=== PATIENT | male | born 1940 | race Caucasian/White ===

== ENCOUNTER 2017-10-09 02:44 | Emergency (ER) | payer MEDICARE, OTHER ==
[2017-10-09] MEDS ORDERED: Acetaminophen TAB* 325 MG PO ONE (03:14)
[2017-10-09 04:10] LABS: Hematocrit 43 % (42-52); Hemoglobin 14.2 g/dl (14.0-18.0); Mean Corpuscular HGB Conc 33 g/dl (31-36); Mean Corpuscular Hemoglobin 29 pg (27-31); Mean Corpuscular Volume 88 fL (80-94); Mean Platelet Volume 9 um3 (7.4-10.4); Red Blood Count 4.84 10^6/ul (4.0-5.4); Red Cell Distribution Width 14 % (10.5-15); White Blood Count 9.8 10^3/ul (3.5-10.8)
[2017-10-09 04:25] LABS: Albumin 3.7 g/dL (3.2-5.2); BUN/Creatinine Ratio 20.5 (8-20); C Reactive Protein 88.57 mg/L (< 5.00); Calcium 8.9 mg/dL (8.6-10.3); EGFR African American 123.8 (>60); EGFR Non-African American 96.3 (>60); Potassium 3.9 mmol/L (3.5-5.0); Total Bilirubin 0.7 mg/dL (0.2-1.0); Total Protein 6.7 g/dL (6.4-8.9)
[2017-10-09] MEDS ORDERED: Levofloxacin 750 MG IVPREMIX(* 750 MG/150 ML BAG IVPB ONE (04:40)
[2017-10-09 04:44] LABS: Troponin I 0.02 ng/mL (<0.04)
[2017-10-09] MEDS ORDERED: Levofloxacin TAB* 750 MG PO ONE (04:49)
--- NOTE | 2017-10-09 05:03 | ED ---
Venessa Lopez Rebecca, scribed for James Jain MD on 10/09/17 at 0313 . HPI Chest Pain - HPI Summary HPI Summary: Pt is a 77 y/o M BIBA who presents to ED c/o chest pain. Sx woke him up from sleep, described as left anterior chest pain with radiation to the back. Initially, pain was severe, described as "serious pain" which is now resolved. [employer], the pt took 2 Tums and 4 x 81 mg ASA and lizzie coleen which resolved sx. additionally notes subjective fever and cough. Denies SOB, N/V, diaphoresis , abdominal pain and sinus congestion. PMHx COPD. - History of Current Complaint Chief Complaint: EDChestPainROMI Time Seen by Provider: 10/09/17 02:56 Hx Obtained From: Patient Onset/Duration: Resolved Initial Severity: Severe Current Severity: None Pain Intensity: 0 Pain Scale Used: 0-10 Numeric Chest Pain Location: Left Anterior Chest Pain Radiates: Yes Chest Pain Radiates To:: Back Aggravating Factor(s): Nothing Alleviating Factor(s): Medication Associated Signs and Symptoms: Positive: Chest Pain, Fever, Cough. Negative: Nausea, Abdominal Pain, Vomiting - Allergy/Home Medications Allergies/Adverse Reactions: Allergies Allergy/AdvReac Type Severity Reaction Status Date / Time Penicillins Allergy Anaphylatic Verified 10/09/17 03:00 Shock PMH/Surg Hx/FS Hx/Imm Hx Cardiovascular History: Reports: Hx Hypertension Respiratory History: Reports: Hx Chronic Obstructive Pulmonary Disease (COPD) Infectious Disease History: No Infectious Disease History: Denies: Traveled Outside the [place] in Last 30 Days - Family History Known Family History: Positive: Other - Stroke (mother) Negative: Cardiac Disease, Hypertension, Diabetes - Social History Alcohol Use: Rare Substance Use Type: Reports: None Smoking Status (MU): Former Smoker Review of Systems Positive: Fever. Negative: Skin Diaphoresis Positive: Other - NEGATIVE: Sinus congestion Positive: Chest Pain - resolved Positive: Cough. Negative: Shortness Of Breath Negative: Abdominal Pain, Vomiting, Nausea All Other Systems Reviewed And Are Negative: Yes Physical Exam - Summary Physical Exam Summary: VITAL SIGNS: Reviewed. GENERAL: ~Patient is a well-developed and nourished male who is lying comfortable in the stretcher. Patient is not in any acute respiratory distress. HEAD AND FACE: No signs of trauma. No ecchymosis, hematomas or skull depressions. No sinus tenderness. EYES: PERRLA, EOMI x 2, No injected conjunctiva, no nystagmus. EARS: Hearing grossly intact. Ear canals and tympanic membranes are within normal limits. MOUTH: Oropharynx within normal limits. CHEST: Symmetric, no tenderness at palpation LUNGS: Bilateral rhonchi. CVS: Regular rate and rhythm, S1 and S2 present, no murmurs or gallops appreciated. ABDOMEN: Soft, non-tender. Abdominal distention. No rebound no guarding, and no masses palpated. Bowel sounds are normal. EXTREMITIES: FROM in all major joints, no edema, no cyanosis or clubbing. NEURO: Alert and oriented x 3. No acute neurological deficits. Speech is normal and follows commands. SKIN: Dry and warm Triage Information Reviewed: Yes Vital Signs On Initial Exam: Initial Vitals Temp Pulse Resp BP Pulse Ox 100.6 F 58 20 185/85 97 10/09/17 02:51 10/09/17 02:51 10/09/17 02:51 10/09/17 02:51 10/09/17 02:51 Vital Signs Reviewed: Yes - Ena Coma Scale Coma Scale Total: 15 Diagnostics - Vital Signs Vital Signs Temp Pulse Resp BP Pulse Ox 10/09/17 02:51 100.6 F 58 20 185/85 97 - Laboratory Result Diagrams: 10/09/17 03:50 10/09/17 03:50 Lab Statement: Any lab studies that have been ordered have been reviewed, and results considered in the medical decision making process. - Radiology CXR Xray Interpretation: No Acute Changes - Bilateral basilar infiltrate. Radiology Interpretation Completed By: ED Physician - EKG 0251 Cardiac Rate: Bradycardia EKG Rhythm: Sinus Bradycardia EKG Interpretation: 57 bpm, RBBB, Q waves in the inferior leads Re-Evaluation - Re-Evaluation First Eval Re-Evaluation Time: 04:48 Comment: Reviewed CXR, EKG and lab results with pt and his family. He refused to get admitted to the hospita. Risks of doing so were discussed with the pt which includes worsening PNA, respiratory failure, , and also regarding CP , heart attacks and permanent disability. He confirms understanding and prefers to leave AMA. Chest Pain Course/Dx - Course Assessment/Plan: Pt is a 77 y/o M BIBA who presents to ED c/o left anterior chest pain with radiation to the back. Initially, pain was severe, described as "serious pain" which is now resolved. [employer], the pt took 2 Tums and 4 x 81 mg ASA and lizzie coleen which resolved sx. additionally notes subjective fever and cough. Denies SOB, N/V, diaphoresis, abdominal pain and sinus congestion. EKG is sinus emerita with RBBB and Q waves in the inferior leads. CXR reveals bilateral basilar infiltrate. Reviewed CXR, EKG and lab results with pt and his family. He refused to get admitted to the hospita. Risks of doing so were discussed with the pt which includes worsening PNA, respiratory failure, , and also regarding CP, heart attacks and permanent disability. He confirms understanding and prefers to leave AMA. Pt will be D/C to home on Levaquin PO to f/u with PCP. Allergies and elevated BP noted. Medications reviewed. - Diagnoses Provider Diagnoses: PNA (pneumonia), Chest pain Discharge - Discharge Plan Condition: Stable Disposition: AGAINST MEDICAL ADVICE Prescriptions: Levofloxacin TAB* [Levaquin TAB*] 750 mg PO DAILY #10 tab Patient Education Materials: Chest Pain (ED), Pneumonia (ED) Referrals: Emerson LYNNE,Elia Nava [Primary Care Provider] - Additional Instructions: Follow-up with your primary care physician today. RETURN TO EMERGENCY DEPARTMENT FOR ANY NEW OR WORSENING SYMPTOMS The documentation as recorded by the Venessa simmons Rebecca accurately reflects the service I personally performed and the decisions made by me, James Jain MD.
[2017-10-09 05:07] VITALS: BP 179/86
--- NOTE | 2017-10-09 07:51 | RAD ---
HISTORY: Shortness of breath COMPARISONS: None VIEWS: 1: frontal portable view of the chest at 3:15 AM FINDINGS: LINES AND TUBES: None. CARDIOMEDIASTINAL SILHOUETTE: The cardiac silhouette is mildly enlarged. The cardiomediastinal silhouette is otherwise normal for portable technique. A radiopaque foreign body is noted overlying the cardiac silhouette. PLEURA: The costophrenic angles are sharp. No pleural abnormalities are noted. LUNG PARENCHYMA: There is hyperinflation. There is prominence of the pulmonary vasculature. ABDOMEN: The upper abdomen is clear. There is no subphrenic gas. BONES AND SOFT TISSUES: No bone or soft tissue abnormalities are noted. IMPRESSION: MILD CARDIOMEGALY WITH PULMONARY VASCULAR CONGESTION.
== END 2017-10-09 05:06 | disposition left against medical advice (07) ==
LOC: ED 02:44
DX: J18.9 Pneumonia, unspecified organism (principal); R07.9 Chest pain, unspecified; Z87.891 Personal history of nicotine dependence; J44.9 Chronic obstructive pulmonary disease, unspecified; Z53.21 Procedure and treatment not carried out due to patient leaving prior to being seen by health care provider; Z88.0 Allergy status to penicillin; I10 Essential (primary) hypertension; I45.10 Unspecified right bundle-branch block
CPT/HCPCS: 36415; 71010; 80053; 83605; 83880; 84484; 85025; 85610; 85730; 86140; 87040; 87502; 93005; 96374; 99283; A9270-GY

== ENCOUNTER 2021-01-15 06:25 | Inpatient (IN) ==
[2021-01-15] MEDS ORDERED: Ondansetron 4 mg VIAL 2 MG/ML 2 ml VIAL IV ONE (06:43)
[2021-01-15] MEDS ORDERED: NS 0.9% 1000 ml BAG 1,000 ML IV ONE (06:43)
[2021-01-15] MEDS ORDERED: Morphine 4 MG/ML VIAL (1 ml) IV ONE ×2 (06:48→07:34)
[2021-01-15 07:02] LABS: ABS Basophils 0.1 10^3/ul (0-0.2); ABS Eosinophils 0.1 10^3/ul (0-0.6); ABS Lymphocytes 0.6 10^3/ul (1.0-4.8); ABS Monocytes 0.2 10^3/ul (0-0.8); ABS Neutrophils 5.8 10^3/ul (1.5-7.7); Eosinophil % 1.8 %; Hematocrit 34 % (42-52); Hemoglobin 11.6 g/dL (14.0-18.0); Mean Corpuscular HGB Conc 34 g/dL (31-36); Mean Corpuscular Hemoglobin 35 pg (27-31); Mean Corpuscular Volume 102 fL (80-94); Mean Platelet Volume 8.5 fL (7.4-10.4); Platelet Count 243 10^3/uL (150-450); Red Blood Count 3.37 10^6 /uL (4.18-5.48); Red Cell Distribution Width 17 % (10-15); White Blood Count 6.8 10^3/uL (3.5-10.8)
[2021-01-15 07:18] LABS: ALT 10 U/L (7-52); AST 14 U/L (13-39); Albumin/Globulin Ratio 1.7 (1-3); Alkaline Phosphatase 101 U/L (34-104); Anion Gap 6 mmol/L (2-11); BUN/Creatinine Ratio 13.7 (8-20); Blood Urea Nitrogen 13 mg/dL (6-24); C Reactive Protein 9.95 mg/L (<8.01); CO2 Carbon Dioxide 26 mmol/L (22-32); Calcium 8.7 mg/dL (8.6-10.3); Chloride 108 mmol/L (101-111); EGFR African American 92.1 (>60); EGFR Non-African American 76.1 (>60); Globulin 2.3 g/dL (2-4); Glucose 119 mg/dL (70-100); Lipase < 10 U/L (11.0-82.0); Potassium 3.9 mmol/L (3.5-5.0); Sodium 140 mmol/L (135-145); Total Protein 6.3 g/dL (6.4-8.9)
[2021-01-15 07:28] LABS: Troponin I 0.02 ng/mL (<0.03)
[2021-01-15] MEDS ORDERED: Iohexol 300 (CONTRAST) 10 ML SDV IV ONE (07:28)
[2021-01-15] MEDS ORDERED: Al Hydrox/Mg Hydrox/Simet LIQ 30 ML UDC PO ONE (09:50)
[2021-01-15 10:03] LABS: Urine Appearance Clear; Urine Bilirubin Negative (Negative); Urine Blood 1+ (Negative); Urine Color Straw; Urine Glucose Negative (Negative); Urine Ketones Negative (Negative); Urine Nitrite Negative (Negative); Urine Protein Negative (Negative); Urine Specific Gravity 1.029 (1.010-1.030); Urine Urobilinogen Negative (Negative)
[2021-01-15 11:01] LABS: Urine Bacteria Absent (Absent); Urine Red Blood Cell 1+(3-5/hpf) (Absent); Urine White Blood Cell Absent (Absent)
[2021-01-15] MEDS ORDERED: Albuterol 2.5mg/3 ml (0.083%) NEB.SOLN INH PRN (15:06)
[2021-01-15] MEDS ORDERED: Furosemide 20 mg/2 ml IV VIAL IV SLOW PU ONE (15:07)
[2021-01-15] MEDS: Enoxaparin 40 MG/0.4 ML SYR SUBCUT SCH (16:27)
[2021-01-15] MEDS: IMATINIB 400 MG PO SCH (21:18)
[2021-01-15] MEDS: Clotrimazole 1% CREAM 45 GM TOPICAL SCH (21:18)
[2021-01-16] MEDS: Meropenem 1 GM PREMIX(*) 1 GM/50 ML BAG IV SCH ×3 (05:30→22:40)
[2021-01-16] MEDS: Clotrimazole 1% CREAM 45 GM TOPICAL SCH (08:00)
[2021-01-16 11:24] LABS: ABS Lymphocytes 0.3 10^3/ul (1.0-4.8); ABS Monocytes 0.5 10^3/ul (0-0.8); ABS Neutrophils 9.4 10^3/ul (1.5-7.7); Eosinophil % 0.1 %; Hematocrit 31 % (42-52); Hemoglobin 10.2 g/dL (14.0-18.0); Mean Corpuscular HGB Conc 33 g/dL (31-36); Mean Corpuscular Hemoglobin 34 pg (27-31); Mean Corpuscular Volume 103 fL (80-94); Mean Platelet Volume 8.3 fL (7.4-10.4); Platelet Count 156 10^3/uL (150-450); Red Blood Count 3.01 10^6 /uL (4.18-5.48); Red Cell Distribution Width 17 % (10-15); White Blood Count 10.2 10^3/uL (3.5-10.8)
[2021-01-16 11:43] LABS: Albumin 3.1 g/dL (3.2-5.2); Albumin/Globulin Ratio 1.6 (1-3); BUN/Creatinine Ratio 18.4 (8-20); Calcium 8.2 mg/dL (8.6-10.3); EGFR African American 88.8 (>60); EGFR Non-African American 73.4 (>60); Magnesium 1.8 mg/dL (1.9-2.7); Potassium 4.5 mmol/L (3.5-5.0); Total Bilirubin 0.9 mg/dL (0.2-1.0); Total Protein 5.1 g/dL (6.4-8.9)
[2021-01-16] MEDS ORDERED: Magnesium Sulfate 2 gm BAG 2 GM/50 ML BAG IVPB ONE (13:57)
[2021-01-16] MEDS ORDERED: Morphine 2 MG/ML SYRINGE IV PRN (15:01)
[2021-01-16] MEDS: Enoxaparin 40 MG/0.4 ML SYR SUBCUT SCH (15:38)
[2021-01-16] MEDS ORDERED: Furosemide 20 mg/2 ml IV VIAL IV ONE (16:03)
[2021-01-16] MEDS ORDERED: Albuterol/Ipratropium NEB.SOL (2.5/0.5 MG) 3 ML NEB.SOLN INH PRN (18:21)
[2021-01-16] MEDS ORDERED: Ziprasidone IM 20 mg VIAL 1 ml VIAL IM ONE (21:00)
[2021-01-16] MEDS ORDERED: Haloperidol 5 mg/ml SDV IV/IM 5 MG/ML AMP IM PRN (21:45)
[2021-01-16] MEDS: DOXYcycline 100 MG in NS 0.9% 250 ml 250 ML IVPB SCH (22:40)
[2021-01-16] MEDS: IMATINIB 400 MG PO SCH (22:40)
[2021-01-17 05:57] LABS: Hematocrit 31 % (42-52); Hemoglobin 10.6 g/dL (14.0-18.0); Mean Corpuscular HGB Conc 34 g/dL (31-36); Mean Corpuscular Hemoglobin 35 pg (27-31); Mean Corpuscular Volume 103 fL (80-94); Mean Platelet Volume 8.9 fL (7.4-10.4); Platelet Count 154 10^3/uL (150-450); Red Blood Count 3.04 10^6 /uL (4.18-5.48); Red Cell Distribution Width 17 % (10-15); White Blood Count 10.7 10^3/uL (3.5-10.8)
[2021-01-17] MEDS: Meropenem 1 GM PREMIX(*) 1 GM/50 ML BAG IV SCH ×2 (06:11→13:30)
[2021-01-17 06:15] LABS: Albumin 3.3 g/dL (3.2-5.2); Albumin/Globulin Ratio 1.5 (1-3); BUN/Creatinine Ratio 25.9 (8-20); C Reactive Protein 215.62 mg/L (<8.01); Calcium 8.6 mg/dL (8.6-10.3); EGFR African American 79.4 (>60); EGFR Non-African American 65.6 (>60); Globulin 2.2 g/dL (2-4); Potassium 4.7 mmol/L (3.5-5.0); Total Bilirubin 0.7 mg/dL (0.2-1.0); Total Protein 5.5 g/dL (6.4-8.9)
[2021-01-17 06:49] LABS: ABS Lymphocytes 0.3 10^3/ul (1.0-4.8); ABS Monocytes 0.7 10^3/ul (0-0.8); ABS Neutrophils 9.7 10^3/ul (1.5-7.7); Lymphocyte % 2.9 %
[2021-01-17] MEDS: DOXYcycline 100 MG in NS 0.9% 250 ml 250 ML IVPB SCH ×2 (08:48→19:35)
[2021-01-17] MEDS: Clotrimazole 1% CREAM 45 GM TOPICAL SCH (08:55)
[2021-01-17] MEDS ORDERED: Furosemide 40 mg/4 ml IV VIAL IV SLOW PU ONE (09:01)
[2021-01-17] MEDS: IMATINIB 400 MG PO SCH (22:06)
[2021-01-18] MEDS: Meropenem 1 GM PREMIX(*) 1 GM/50 ML BAG IV SCH ×4 (01:08→20:48)
[2021-01-18 06:22] LABS: ABS Lymphocytes 0.4 10^3/ul (1.0-4.8); ABS Monocytes 0.6 10^3/ul (0-0.8); ABS Neutrophils 5.9 10^3/ul (1.5-7.7); Eosinophil % 0.2 %; Hematocrit 30 % (42-52); Hemoglobin 9.9 g/dL (14.0-18.0); Lymphocyte % 5.5 %; Mean Corpuscular HGB Conc 34 g/dL (31-36); Mean Corpuscular Hemoglobin 35 pg (27-31); Mean Corpuscular Volume 104 fL (80-94); Mean Platelet Volume 8.8 fL (7.4-10.4); Platelet Count 131 10^3/uL (150-450); Red Blood Count 2.84 10^6 /uL (4.18-5.48); Red Cell Distribution Width 16 % (10-15); White Blood Count 6.9 10^3/uL (3.5-10.8)
[2021-01-18 06:40] LABS: BUN/Creatinine Ratio 31.5 (8-20); Calcium 8.7 mg/dL (8.6-10.3); EGFR African American 79.4 (>60); EGFR Non-African American 65.6 (>60); Potassium 4.5 mmol/L (3.5-5.0)
[2021-01-18] MEDS: DOXYcycline 100 MG in NS 0.9% 250 ml 250 ML IVPB SCH (07:19)
[2021-01-18] MEDS: Clotrimazole 1% CREAM 45 GM TOPICAL SCH (08:50)
[2021-01-18] MEDS ORDERED: Buffered Lidocaine 1% SYRIN 1 ml INTRADERM ONE (09:31)
[2021-01-18] MEDS ORDERED: Furosemide 20 mg/2 ml IV VIAL IV SLOW PU ONE (09:59)
[2021-01-18] MEDS ORDERED: Propofol 10 MG/ML 20 ML BTL ONE (10:06)
[2021-01-18] MEDS ORDERED: fentaNYL 100 mcg/2 ml 50 MCG/ML VIAL ONE ×3 (10:06→13:13)
[2021-01-18] MEDS ORDERED: Rocuronium 50 mg VIAL 10 mg/ml 5 ml VIAL (50 mg) ONE (10:07)
[2021-01-18] MEDS ORDERED: Lidocaine 2% PF 5 ML VIAL ONE (10:07)
[2021-01-18] MEDS ORDERED: Bupivacaine 0.25% SDV 30 ML ONE (10:39)
[2021-01-18] MEDS ORDERED: EPHEDrine (Pressors) 50 MG/ML VIAL ONE (11:13)
[2021-01-18] MEDS ORDERED: hydrALAZINE 20 mg/ml 1 ML Vial IV ONE (11:26)
[2021-01-18] MEDS ORDERED: DiMENhydriNATE IV 50 mg/ml 1 ml VIAL IV PUSH PRN (11:31)
[2021-01-18] MEDS ORDERED: Naloxone 0.4 mg VIAL 0.4 mg/ml 1 ml VIAL IV PRN (11:31)
[2021-01-18] MEDS ORDERED: HYDROcodone/ACETAMIN 5/325 mg TAB PO PRN (11:31)
[2021-01-18] MEDS ORDERED: oxyCODONE/Acetamin 5/325 mg TAB PO PRN (11:31)
[2021-01-18] MEDS ORDERED: Metoprolol Tartrate 5 mg VIAL 5 ml VIAL (1 mg/ml) ONE (11:37)
[2021-01-18] MEDS ORDERED: Sugammadex 500 MG/5 ML 5 ml VIAL IV PUSH ONE (12:30)
[2021-01-18] MEDS ORDERED: Ondansetron 4 mg VIAL 2 MG/ML 2 ml VIAL ONE (12:32)
[2021-01-18] MEDS ORDERED: Furosemide 20 mg/2 ml IV VIAL ONE (13:19)
[2021-01-18] MEDS: fentaNYL 100 mcg/2 ml 50 MCG/ML VIAL IV PRN ×2 (13:20→13:31)
[2021-01-18] MEDS ORDERED: HYDROcodone/ACETAMIN 5/325 mg TAB ONE (14:16)
[2021-01-18] MEDS: IMATINIB 400 MG PO SCH (20:48)
[2021-01-19] MEDS: Meropenem 1 GM PREMIX(*) 1 GM/50 ML BAG IV SCH ×3 (04:54→19:47)
[2021-01-19 06:15] LABS: ABS Lymphocytes 0.3 10^3/ul (1.0-4.8); ABS Monocytes 0.7 10^3/ul (0-0.8); ABS Neutrophils 4.7 10^3/ul (1.5-7.7); Eosinophil % 0.3 %; Hematocrit 30 % (42-52); Hemoglobin 9.9 g/dL (14.0-18.0); Lymphocyte % 5.2 %; Mean Corpuscular HGB Conc 34 g/dL (31-36); Mean Corpuscular Hemoglobin 35 pg (27-31); Mean Corpuscular Volume 103 fL (80-94); Mean Platelet Volume 8.4 fL (7.4-10.4); Platelet Count 151 10^3/uL (150-450); Red Blood Count 2.86 10^6 /uL (4.18-5.48); Red Cell Distribution Width 17 % (10-15); White Blood Count 5.8 10^3/uL (3.5-10.8)
[2021-01-19 06:30] LABS: BUN/Creatinine Ratio 36.2 (8-20); C Reactive Protein 145.78 mg/L (<8.01); Calcium 8.4 mg/dL (8.6-10.3); EGFR African American 93.2 (>60); Potassium 4.4 mmol/L (3.5-5.0)
[2021-01-19] MEDS: Clotrimazole 1% CREAM 45 GM TOPICAL SCH (08:22)
[2021-01-19] MEDS ORDERED: Magnesium Hydroxide LIQ 30 ML UDC PO ONE (12:05)
[2021-01-19] MEDS ORDERED: Furosemide 20 mg/2 ml IV VIAL IV SLOW PU ONE ×2 (12:05→16:00)
[2021-01-19] MEDS: IMATINIB 400 MG PO SCH (21:57)
[2021-01-20] MEDS: Meropenem 1 GM PREMIX(*) 1 GM/50 ML BAG IV SCH ×2 (04:55→09:07)
[2021-01-20 05:39] LABS: ABS Eosinophils 0.1 10^3/ul (0-0.6); ABS Lymphocytes 0.5 10^3/ul (1.0-4.8); ABS Monocytes 0.7 10^3/ul (0-0.8); ABS Neutrophils 3.5 10^3/ul (1.5-7.7); Eosinophil % 1.7 %; Hematocrit 30 % (42-52); Hemoglobin 10.1 g/dL (14.0-18.0); Lymphocyte % 10.2 %; Mean Corpuscular HGB Conc 34 g/dL (31-36); Mean Corpuscular Hemoglobin 35 pg (27-31); Mean Corpuscular Volume 103 fL (80-94); Mean Platelet Volume 8.9 fL (7.4-10.4); Nucleated Red Blood Cells % 0.1; Platelet Count 153 10^3/uL (150-450); Red Cell Distribution Width 17 % (10-15); White Blood Count 4.8 10^3/uL (3.5-10.8)
[2021-01-20 05:53] LABS: BUN/Creatinine Ratio 30.1 (8-20); Calcium 8.4 mg/dL (8.6-10.3); EGFR African American 94.4 (>60)
[2021-01-20] MEDS ORDERED: Furosemide 20 mg/2 ml IV VIAL IV SLOW PU ONE (08:41)
[2021-01-20] MEDS: Clotrimazole 1% CREAM 45 GM TOPICAL SCH (09:27)
[2021-01-20 16:07] LABS: Urine Appearance Clear; Urine Bilirubin Negative (Negative); Urine Blood Negative (Negative); Urine Color Yellow; Urine Glucose Negative (Negative); Urine Ketones Negative (Negative); Urine Nitrite Negative (Negative); Urine Protein Negative (Negative); Urine Specific Gravity 1.011 (1.010-1.030); Urine Urobilinogen Negative (Negative)
[2021-01-20] MEDS: Ondansetron 4 mg VIAL 2 MG/ML 2 ml VIAL IV PRN (20:30)
[2021-01-20] MEDS: Prochlorperazine 5 mg/ml 2 ml VIAL (10 mg) IV PRN (22:53)
[2021-01-20] MEDS: IMATINIB 400 MG PO SCH (23:21)
[2021-01-21] MEDS: Ondansetron 4 mg VIAL 2 MG/ML 2 ml VIAL IV PRN (04:25)
[2021-01-21 06:09] LABS: ABS Eosinophils 0.1 10^3/ul (0-0.6); ABS Lymphocytes 0.4 10^3/ul (1.0-4.8); ABS Monocytes 0.6 10^3/ul (0-0.8); ABS Neutrophils 3.3 10^3/ul (1.5-7.7); Eosinophil % 1.3 %; Hematocrit 27 % (42-52); Hemoglobin 9.2 g/dL (14.0-18.0); Lymphocyte % 9.7 %; Mean Corpuscular HGB Conc 34 g/dL (31-36); Mean Corpuscular Hemoglobin 34 pg (27-31); Mean Corpuscular Volume 102 fL (80-94); Mean Platelet Volume 8.5 fL (7.4-10.4); Platelet Count 147 10^3/uL (150-450); Red Blood Count 2.66 10^6 /uL (4.18-5.48); Red Cell Distribution Width 16 % (10-15); White Blood Count 4.3 10^3/uL (3.5-10.8)
[2021-01-21 06:24] LABS: Calcium 8.2 mg/dL (8.6-10.3); Potassium 3.7 mmol/L (3.5-5.0)
[2021-01-21] MEDS: Prochlorperazine 5 mg/ml 2 ml VIAL (10 mg) IV PRN (09:29)
[2021-01-21] MEDS: Clotrimazole 1% CREAM 45 GM TOPICAL SCH (10:25)
[2021-01-21] MEDS ORDERED: Furosemide 40 mg/4 ml IV VIAL IV SLOW PU ONE (12:10)
[2021-01-21] MEDS: Heparin 5000 UNITS/ML 1 mL VIAL SUBCUT SCH ×2 (15:41→20:37)
[2021-01-21] MEDS ORDERED: Furosemide 40 mg/4 ml IV VIAL IV SLOW PU SCH (17:00)
[2021-01-21] MEDS ORDERED: Furosemide 20 mg/2 ml IV VIAL IV SLOW PU ONE ×2 (18:00)
[2021-01-21] MEDS: IMATINIB 400 MG PO SCH (20:36)
[2021-01-22] MEDS: Heparin 5000 UNITS/ML 1 mL VIAL SUBCUT SCH (05:13)
[2021-01-22 06:15] LABS: ABS Eosinophils 0.1 10^3/ul (0-0.6); ABS Lymphocytes 0.5 10^3/ul (1.0-4.8); ABS Monocytes 0.4 10^3/ul (0-0.8); ABS Neutrophils 2.5 10^3/ul (1.5-7.7); Eosinophil % 2.4 %; Hematocrit 29 % (42-52); Hemoglobin 9.6 g/dL (14.0-18.0); Mean Corpuscular HGB Conc 34 g/dL (31-36); Mean Corpuscular Hemoglobin 34 pg (27-31); Mean Corpuscular Volume 102 fL (80-94); Mean Platelet Volume 8.1 fL (7.4-10.4); Platelet Count 165 10^3/uL (150-450); Red Blood Count 2.81 10^6 /uL (4.18-5.48); Red Cell Distribution Width 16 % (10-15); White Blood Count 3.5 10^3/uL (3.5-10.8)
[2021-01-22 06:28] LABS: BUN/Creatinine Ratio 30.2 (8-20); Calcium 8.4 mg/dL (8.6-10.3); EGFR Non-African American 75.2 (>60); Potassium 3.6 mmol/L (3.5-5.0)
[2021-01-22] MEDS: Clotrimazole 1% CREAM 45 GM TOPICAL SCH (09:08)
[2021-01-22 10:10] VITALS: BP 121/57
== END 2021-01-22 13:35 | disposition home health service (06) | DRG 418 ==
LOC: ED 06:25 → MED 13:40
PROVIDERS: ADMIT Hospitalist; ATTEND Internal Medicine

== ENCOUNTER 2024-02-16 19:08 | Inpatient (IN) ==
[2024-02-16 19:48] LABS: ABS Eosinophils 0.1 10^3/uL (0.0-0.5); ABS Lymphocytes 0.5 10^3/uL (1.0-4.8); ABS Monocytes 0.3 10^3/uL (0.0-1.1); ABS Neutrophils 4.1 10^3/uL (1.5-7.6); ABS Nucleated RBC 0.01 10^3/ul; Eosinophil % 2.6 %; Hematocrit 35.9 % (38-53); Lymphocyte % 10.3 %; Mean Corpuscular Hemoglobin 34.3 pg (27-33); Mean Corpuscular Hgb Conc 33.5 g/dL (31-36); Mean Corpuscular Volume 102.5 fL (80-97); Mean Platelet Volume 8.1 fL (7.5-11.2); Nucleated Red Blood Cells % 0.2 %/100WBC (0.0-0.8); Platelet Count 227 10^3/uL (150-450); White Blood Count 5.1 10^3/uL (3.6-10.2)
[2024-02-16 20:00] LABS: PCO2 Arterial 54 mmHg (35-45); PO2 Arterial 100 mmHg (80-100)
[2024-02-16 20:03] LABS: Activated Partial Thrombo Time 30.3 seconds (26.0-38.0); INR 1.16 (0.83-1.13)
[2024-02-16 20:45] LABS: Albumin 3.5 g/dL (3.2-5.2); Albumin/Globulin Ratio 1.8 (1-3); Creatinine, Serum 1.42 mg/dL (0.67-1.17); Globulin 1.9 g/dL (2-4); Potassium 3.6 mmol/L (3.5-5.0); Total Bilirubin 0.6 mg/dL (0.2-1.0); Total Protein 5.4 g/dL (6.4-8.9); eGFR CKD-EPI 48.7 (>60)
[2024-02-16] MEDS: Furosemide 40 mg/4 ml IV VIAL IV SLOW PU ONE (21:13)
[2024-02-16] MEDS: Aztreonam 2 GM in NS 0.9% 100 ml BAG 100 ML IVPB ONE (21:25)
[2024-02-16] MEDS: Lactated Ringers SEPSIS* BAG 2,190 ML IV ONE (21:25)
[2024-02-16 21:53] LABS: High Sensitivity Troponin 1 Hr 749 pg/mL (<20)
[2024-02-16] MEDS: metroNIDAZOLE IV 500 MG/100ML 500 MG/100 ML BAG IVPB ONE (22:35)
[2024-02-16 23:08] LABS: C Reactive Protein 21.37 mg/L (<8.01)
[2024-02-16 23:13] LABS: Urine Appearance No Cx Clear (Clear); Urine Bilirubin No Culture Negative (Negative); Urine Blood No Culture Negative (Negative); Urine Color No Culture Colorless; Urine Glucose No Culture Negative (Negative); Urine Ketones No Culture Negative (Negative); Urine Leukocytes No Culture Negative Leu/uL (Negative); Urine Nitrite No Culture Negative (Negative); Urine Protein No Culture Negative (Negative); Urine Specific Gravity No Cx 1.008 (1.002-1.030); Urine Urobilinogen No Cx Negative (Negative)
[2024-02-16 23:15] LABS: Urine Bacteria No Culture Absent /HPF (Absent); Urine Red Blood Cell No Cult Trace(0-2/hpf) /HPF (0-Trace); Urine White Blood Cell No Cult Trace(0-5/hpf) /HPF (0-Trace)
[2024-02-16 23:59] LABS: Vitamin D Total 25(OH) 18.9 ng/mL (20-50)
[2024-02-17] MEDS: Vancomycin 1,250 MG in NS 0.9% 250 ml 250 ML IVPB ONE (01:27)
[2024-02-17] MEDS: Potassium Chlor 20 meq TAB.ER PO ONE ×2 (02:08→23:21)
[2024-02-17] MEDS ORDERED: Albuterol/Ipratropium NEB.SOL (2.5/0.5 MG) 3 ML NEB.SOLN INH PRN (03:06)
[2024-02-17] MEDS: Azithromycin 500 mg/250 ml NS 500 MG/250 ML BAG IVPB SCH (03:11)
[2024-02-17] MEDS: Enoxaparin 40 MG/0.4 ML SYR SUBCUT SCH (06:41)
[2024-02-17] MEDS: DOXYcycline 100 MG in NS 0.9% 250 ml 250 ML IVPB SCH ×2 (07:50→22:55)
[2024-02-17] MEDS: Furosemide 40 mg/4 ml IV VIAL IV SLOW PU ONE (11:40)
[2024-02-17] MEDS: Heparin DRIP 25,000 UNITS BAG 25,000 UNITS/250 ML BAG IV SCH (11:57)
[2024-02-17] MEDS: Heparin 5000 UNITS/ML 1 mL VIAL IV SCH (12:02)
[2024-02-17 12:03] LABS: Hematocrit 31.1 % (38-53); Hemoglobin 10.5 g/dL (13.2-16.3); Mean Corpuscular Hemoglobin 34.7 pg (27-33); Mean Corpuscular Hgb Conc 33.8 g/dL (31-36); Mean Corpuscular Volume 102.9 fL (80-97); Mean Platelet Volume 8.5 fL (7.5-11.2); Platelet Count 166 10^3/uL (150-450); Red Blood Count 3.02 10^6/uL (4.06-5.63); Red Cell Distribution Width 16.8 % (12-17); White Blood Count 4.1 10^3/uL (3.6-10.2)
[2024-02-17 14:14] LABS: Anion Gap 6 mmol/L (2-16); Blood Urea Nitrogen 17 mg/dL (6-24); CO2 Carbon Dioxide 30 mmol/L (22-32); Calcium 7.2 mg/dL (8.6-10.3); Chloride 110 mmol/L (101-111); Creatinine, Serum 1.16 mg/dL (0.67-1.17); Glucose 89 mg/dL (70-100); Sodium 146 mmol/L (135-145); eGFR CKD-EPI 62.1 (>60)
[2024-02-17] MEDS ORDERED: Lorazepam PYXIS KEY PRN (15:45)
[2024-02-17] MEDS ORDERED: LORazepam 2 mg VIAL 1 ml IV PUSH PRN (15:45)
[2024-02-17 17:43] LABS: Potassium Redraw 3.3 mmol/L (3.5-5.0)
[2024-02-17 20:09] LABS: Hematocrit 30.4 % (38-53); Hemoglobin 10.4 g/dL (13.2-16.3)
[2024-02-17] MEDS: KCL 20 MEQ/100 ML IVPREMIX 20 MEQ/100 ML BAG IV ONE (20:39)
[2024-02-17] MEDS: Furosemide 40 mg/4 ml IV VIAL IV ONE (21:02)
[2024-02-17] MEDS: Acetaminophen IV 1 GM/100ML 1,000 MG/100 ML BAG IV PRN (21:15)
[2024-02-17] MEDS ORDERED: Potassium Chlor 20 meq TAB.ER PO ONE (22:00)
[2024-02-17] MEDS: PTO: Imatinib 400 mg TAB (NF) PO SCH (23:38)
[2024-02-18 07:18] LABS: ABS Lymphocytes 0.2 10^3/uL (1.0-4.8); ABS Monocytes 0.3 10^3/uL (0.0-1.1); ABS Neutrophils 6.6 10^3/uL (1.5-7.6); Eosinophil % 0.1 %; Hemoglobin 10.5 g/dL (13.2-16.3); Lymphocyte % 3.1 %; Mean Corpuscular Hemoglobin 34.6 pg (27-33); Mean Corpuscular Hgb Conc 33.9 g/dL (31-36); Mean Corpuscular Volume 102.1 fL (80-97); Mean Platelet Volume 8.5 fL (7.5-11.2); Platelet Count 162 10^3/uL (150-450); Red Blood Count 3.04 10^6/uL (4.06-5.63); Red Cell Distribution Width 16.6 % (12-17); White Blood Count 7.1 10^3/uL (3.6-10.2)
[2024-02-18 07:25] LABS: Calcium 7.3 mg/dL (8.6-10.3); Creatinine, Serum 1.25 mg/dL (0.67-1.17); Magnesium 1.6 mg/dL (1.9-2.7); Potassium 3.5 mmol/L (3.5-5.0); eGFR CKD-EPI 56.8 (>60)
[2024-02-18] MEDS: Nystatin TOP POWDER 15 GM BTL TOPICAL SCH (10:36)
[2024-02-18] MEDS ORDERED: Heparin 5000 UNITS/ML 1 mL VIAL IV SCH (11:00)
[2024-02-18 11:23] LABS: ABS Basophils 0.1 10^3/uL (0.0-0.1); ABS Eosinophils 0.1 10^3/uL (0.0-0.5); ABS Lymphocytes 0.3 10^3/uL (1.0-4.8); ABS Monocytes 0.4 10^3/uL (0.0-1.1); ABS Neutrophils 5.5 10^3/uL (1.5-7.6); Eosinophil % 1.3 %; Hematocrit 34.1 % (38-53); Hemoglobin 11.2 g/dL (13.2-16.3); Lymphocyte % 5.4 %; Mean Corpuscular Hemoglobin 33.7 pg (27-33); Mean Corpuscular Hgb Conc 32.9 g/dL (31-36); Mean Corpuscular Volume 102.3 fL (80-97); Nucleated Red Blood Cells % 0.1 %/100WBC (0.0-0.8); Platelet Count 171 10^3/uL (150-450); Red Blood Count 3.33 10^6/uL (4.06-5.63); Red Cell Distribution Width 16.4 % (12-17); White Blood Count 6.4 10^3/uL (3.6-10.2)
[2024-02-18] MEDS: Heparin DRIP 25,000 UNITS BAG 25,000 UNITS/250 ML BAG IV SCH (11:37)
[2024-02-18 12:06] LABS: Creatinine, Serum 1.17 mg/dL (0.67-1.17); eGFR CKD-EPI 61.5 (>60)
[2024-02-18] MEDS: Iodixanol (CONTRAST) 320 MG/ML 100 ML SDV IV ONE (13:40)
[2024-02-18] MEDS: Magnesium Sulf 4 GM/100 ML IV 4,000 MG/100 ML BAG IVPB ONE (14:10)
[2024-02-18] MEDS: Iohexol 350 (CONTRAST) 500 ML MDV IV ONE (17:31)
[2024-02-18] MEDS: Enoxaparin 80 MG/0.8 ML SYR SUBCUT SCH (18:13)
[2024-02-18 18:56] LABS: PCO2 Arterial 60 mmHg (35-45); PO2 Arterial 64 mmHg (80-100)
[2024-02-19 06:09] LABS: ABS Lymphocytes 0.3 10^3/uL (1.0-4.8); ABS Monocytes 0.3 10^3/uL (0.0-1.1); ABS Neutrophils 3.8 10^3/uL (1.5-7.6); ABS Nucleated RBC 0.01 10^3/ul; Eosinophil % 0.8 %; Hematocrit 28.4 % (38-53); Hemoglobin 9.5 g/dL (13.2-16.3); Lymphocyte % 6.1 %; Mean Corpuscular Hemoglobin 34.3 pg (27-33); Mean Corpuscular Hgb Conc 33.4 g/dL (31-36); Mean Corpuscular Volume 102.6 fL (80-97); Nucleated Red Blood Cells % 0.2 %/100WBC (0.0-0.8); Platelet Count 150 10^3/uL (150-450); Red Blood Count 2.77 10^6/uL (4.06-5.63); Red Cell Distribution Width 16.9 % (12-17); White Blood Count 4.5 10^3/uL (3.6-10.2)
[2024-02-19 06:45] LABS: Calcium 7.5 mg/dL (8.6-10.3); Creatinine, Serum 1.07 mg/dL (0.67-1.17); Magnesium 2.4 mg/dL (1.9-2.7); Potassium 3.5 mmol/L (3.5-5.0); eGFR CKD-EPI 68.4 (>60)
[2024-02-19] MEDS ORDERED: Sulfur Hexaflouride MICROSPHR 25 MG VIAL ONE (09:19)
[2024-02-19 11:12] LABS: Ferritin 100.7 ng/mL (24-336)
[2024-02-19 11:16] LABS: Folate 6.47 ng/mL (5.90-24.80)
[2024-02-19] MEDS: Furosemide 20 mg/2 ml IV VIAL IV SLOW PU ONE (13:43)
[2024-02-19] MEDS: Cyanocobalamin INJ 1,000 MCG/ML VIAL 1 ML VIAL IM SCH (13:46)
[2024-02-19] MEDS: Mometasone/Formoter 100/5 MDI INH SCH (19:24)
[2024-02-20] MEDS: KCL 10 MEQ/50 ML IVPREMIX 10 MEQ/50 ML BAG IV SCH (10:22)
[2024-02-20] MEDS: Furosemide 20 mg/2 ml IV VIAL IV SLOW PU ONE (10:22)
[2024-02-20] MEDS: Potassium Chloride LIQUID 20 MEQ/15 ML LIQUID PO ONE (10:22)
[2024-02-20] MEDS: Pantoprazole VIAL 40 MG VIAL IV SCH (10:22)
[2024-02-21 08:18] LABS: ABS Eosinophils 0.2 10^3/uL (0.0-0.5); ABS Lymphocytes 0.4 10^3/uL (1.0-4.8); ABS Monocytes 0.5 10^3/uL (0.0-1.1); ABS Neutrophils 3.8 10^3/uL (1.5-7.6); Eosinophil % 4.9 %; Hematocrit 27.3 % (38-53); Lymphocyte % 7.1 %; Mean Corpuscular Hemoglobin 33.9 pg (27-33); Mean Corpuscular Volume 102.9 fL (80-97); Mean Platelet Volume 8.3 fL (7.5-11.2); Nucleated Red Blood Cells % 0.1 %/100WBC (0.0-0.8); Platelet Count 139 10^3/uL (150-450); Red Blood Count 2.65 10^6/uL (4.06-5.63); Red Cell Distribution Width 17.1 % (12-17)
[2024-02-21 09:55] LABS: Calcium 7.6 mg/dL (8.6-10.3); Creatinine, Serum 0.83 mg/dL (0.67-1.17); Phosphorus 2.1 mg/dL (2.5-5.0); Potassium 3.6 mmol/L (3.5-5.0); eGFR CKD-EPI 86.3 (>60)
[2024-02-21] MEDS ORDERED: Ondansetron ODT 4 mg TAB 4 MG TAB SL PRN (11:44)
[2024-02-21] MEDS ORDERED: Senna TAB 8.6 mg TAB PO PRN (11:44)
[2024-02-21] MEDS ORDERED: Polyethylene Glycol 3350 17 GM PACKET PO PRN (11:44)
[2024-02-21] MEDS: Morphine ORAL CONCENTRATE 5 MG/0.25 ML ORAL.SYRIN PO PRN (23:41)
[2024-02-22] MEDS: Morphine ORAL CONCENTRATE 5 MG/0.25 ML ORAL.SYRIN PO PRN (08:25)
[2024-02-22] MEDS ORDERED: Lorazepam PYXIS KEY PRN (08:34)
[2024-02-22] MEDS: LORazepam 2 mg VIAL 1 ml IV PUSH ONE (11:29)
[2024-02-23 01:06] VITALS: BP 147/71
[2024-02-23] MEDS: Morphine ORAL CONCENTRATE 5 MG/0.25 ML ORAL.SYRIN PO PRN ×2 (11:01→21:45)
[2024-02-23 11:42] LABS: Urine Appearance Clear; Urine Bilirubin Negative (Negative); Urine Blood 1+ (Negative); Urine Color Yellow; Urine Glucose Negative (Negative); Urine Ketones Negative (Negative); Urine Nitrite Negative (Negative); Urine Protein 1+ (>=30 mg/dL) (Negative); Urine Specific Gravity 1.025 (1.002-1.030); Urine Urobilinogen 1+ (Negative)
[2024-02-23 11:49] LABS: Urine Bacteria Absent /HPF (Absent); Urine Red Blood Cell 3+(>10/hpf) /HPF (0-Trace); Urine Squamous Epithelial Cell Present /HPF (Absent); Urine White Blood Cell Trace(0-5/hpf) /HPF (0-Trace)
[2024-02-23] MEDS: Morphine ORAL CONCENTRATE 5 MG/0.25 ML ORAL.SYRIN SL ONE (17:09)
[2024-02-23] MEDS ORDERED: LORazepam 2 MG/ML 1 mL Syringe IV ONE (22:10)
[2024-02-23] MEDS: diazePAM INJ CARPUJECT 5 MG/ML SYRINGE IV ONE (22:39)
[2024-02-24] MEDS: Morphine ORAL CONCENTRATE 5 MG/0.25 ML ORAL.SYRIN PO PRN (08:15)
[2024-02-24] MEDS: Atropine 1% (ORAL/SL) 15 ML BTL SL PRN (09:49)
[2024-02-24] MEDS: Morphine ORAL CONCENTRATE 5 MG/0.25 ML ORAL.SYRIN PO ONE (09:51)
== END 2024-02-24 16:50 | disposition expired | DRG 291 ==
LOC: ED 19:08 → EDHOLD 19:08 → SUATTDRO 22:35 → MEDTELE 02-17 10:24 → MED 02-17 10:56 → MEDTELE 02-17 11:17 → SUATTDRO 02-18 10:15 → MED 02-23 00:55
PROVIDERS: ADMIT Internal Medicine; ATTEND Internal Medicine